=== PATIENT | female | born 1950 | race Caucasian/White ===

== ENCOUNTER → 2018-05-26 | Outpatient (CLI) | payer MEDICARE, BC ==
[~2018-05-26] MED LIST: LEXAPRO 10MG10 MG PO; PRAVACHOL 20MG20 MG PO; RESTORIL 1515 MG/CAP PO; TEMOVATE0.051 TOP
== END ==
LOC: MC.RAD 13:56
DX: Z12.31 Encounter for screening mammogram for malignant neoplasm of breast (principal)

== ENCOUNTER 2020-01-22 16:44 | Emergency (ER) | payer MEDICARE, BC ==
[~2020-01-22] VITALS: Ht 170.2 cm; Wt 59.5 kg
[2020-01-22 16:55] VITALS: TEMP 98.6
[2020-01-22] MEDS ORDERED: ATIVAN 0.50.5 MG/TAB PO (17:04)
[2020-01-22] MEDS ORDERED: NORCO 325 MG-51 TAB PO (19:00)
[2020-01-22 19:22] VITALS: BP 159/87; PULSE 100
== END 2020-01-22 19:42 | disposition home or self-care (01) ==
LOC: COL.ER 16:44
DX: S52.501A Unspecified fracture of the lower end of right radius, initial encounter for closed fracture (principal); S93.401A Sprain of unspecified ligament of right ankle, initial encounter; E78.5 Hyperlipidemia, unspecified; Z87.891 Personal history of nicotine dependence; Z88.2 Allergy status to sulfonamides; Z88.6 Allergy status to analgesic agent; W01.0XXA Fall on same level from slipping, tripping and stumbling without subsequent striking against object, initial encounter; Y92.094 Garage of other non-institutional residence as the place of occurrence of the external cause
CPT/HCPCS: J2270; J2405

== ENCOUNTER → 2020-10-24 | Outpatient (CLI) | payer MEDICARE, BC ==
[~2020-10-24] MED LIST changes: +ATIVAN 0.50.5 MG/TAB PO; +NORCO 325 MG-51 TAB PO
== END ==
LOC: MC.RAD 14:30
DX: Z12.31 Encounter for screening mammogram for malignant neoplasm of breast (principal)

== ENCOUNTER 2023-10-10 06:05 | Emergency (ER) | payer MEDICARE, BC ==
[~2023-10-10] VITALS: Ht 170.2 cm; Wt 59.5 kg
[~2023-10-10 06:05] MED LIST changes: +AMOXICILLIN 8751 TAB PO; +ASPIRIN 81M81 MG/TA2 PO; +CALCIUM 600MG+D1 TAB PO; +FOSAMAX 70MG TA70 MG PO; +NITROSTAT0.4 MG/TAB SL; +TOPROL XL 25MG25 MG PO
[2023-10-10 06:17] VITALS: TEMP 97.7
[2023-10-10] MEDS ORDERED: Ondansetron 4 MG/2 ML VIAL IV PRN (07:15)
[2023-10-10] MEDS ORDERED: NS 1,000 ML IV ONE (07:15)
[2023-10-10] MEDS ORDERED: Morphine 4 MG/ML VIAL IV PRN (07:15)
[2023-10-10 07:21] LABS: BASO % 0.4 % (0.0-2.0); EOS # 0.1 K/mm3 (0.0-0.7); EOS % 2.1 % (0.0-4.0); GRAN # 2.5 K/mm3 (1.4-6.5); GRAN % 48.4 % (42.2-75.2); HEMOGLOBIN 14.3 g/dl (12.5-16.0); MEAN CELL VOLUME 95 fl (80.0-100.0); MEAN CORPUSCULAR HEMOGLOBIN 32 pg (27-31); MEAN CORPUSCULAR HGB CONC 34 g/dl (33.0-37.0); MEAN PLATELET VOLUME 9.2 fl (7.4-10.4); MONO # 0.5 K/mm3 (0.1-0.6); MONO % 9.9 % (1.7-9.3); PLATELET COUNT 200 K/mm3 (130-400); RED BLOOD COUNT 4.43 M/mm3 (4.10-5.30)
[2023-10-10 07:27] LABS: URINE APPEARANCE TURBID (CLEAR/HAZY); URINE BLOOD 3+ (NEGATIVE); URINE COLOR RED (YELLOW); URINE GLUCOSE NEGATIVE (NEGATIVE); URINE KETONE NEGATIVE (NEGATIVE); URINE NITRATE NEGATIVE (NEGATIVE); URINE PROTEIN(semi-quant) 2+ (NEGATIVE); URINE UROBILINOGEN 0.2 E.U/dL (0.2-1.0)
[2023-10-10 07:34] LABS: COLLECTION METHOD CLEAN CATCH
[2023-10-10 07:38] LABS: ALBUMIN 4.2 g/dL (3.4-4.8); CALCIUM 9.6 mg/dL (8.4-10.2); CREATININE, serum 1.04 mg/dL (0.57-1.11); POTASSIUM 3.6 mEq/L (3.5-4.5); TOTAL PROTEIN 6.9 g/dl (6.2-8.1)
[2023-10-10] MEDS ORDERED: Iohexol 300 - 100 ML VIAL IV ONE (07:57)
[2023-10-10] MEDS ORDERED: NS 100 ML IV SCH (07:57)
[2023-10-10] MEDS ORDERED: cefTRIAXone 1 G in Water For Injection,Sterile 10 ML IV ONE (08:45)
[2023-10-10] MEDS ORDERED: FLOMAX 0.40.4 MG/CAP PO (09:21)
[2023-10-10] MEDS ORDERED: PERCOCET 325 MG1 TA2 PO (09:21)
[2023-10-10] MEDS ORDERED: ZOFRAN ODT4 MG PO (09:21)
[2023-10-10] MEDS ORDERED: CEPHALEXIN500 M1 PO (09:21)
[2023-10-10 09:31] VITALS: BP 169/85; PULSE 66
[2023-10-13] MEDS ORDERED: LEVAQUIN 5500 MG/TA1 PO (13:06)
== END 2023-10-10 09:42 | disposition home or self-care (01) ==
LOC: COL.ER 06:05
PROVIDERS: Personal Emergency Response Attendant
DX: N20.2 Calculus of kidney with calculus of ureter (principal); Z88.2 Allergy status to sulfonamides
CPT/HCPCS: J0696; J2270; J2405; J7030; Q9967